=== PATIENT | male | born 1960 | race Caucasian/White ===

== ENCOUNTER → 2023-09-10 06:26 | Outpatient (REF) | payer OTHER, SELFPAY ==
[2023-09-10] MEDS: LEXISCAN 0.400000000000000022 MG IV (08:30)
== END ==
LOC: RCS 06:26
PROVIDERS: ATTENDING PHYSICIAN Internal Medicine Cardiovascular Disease; FAMILY PHYSICIAN Nurse Practitioner Family
DX: I25.10 Atherosclerotic heart disease of native coronary artery without angina pectoris (principal)
CPT/HCPCS: 78452; 93017; A9500; J2785